=== PATIENT | female | born 1955 | race Caucasian/White ===

== ENCOUNTER → 2017-02-22 | Outpatient (CLI) | payer BC | LOC: FIMAGING 11:35 | PROVIDERS: ATTEND Internal Medicine | DX: Z03.89 Encounter for observation for other suspected diseases and conditions ruled out (principal) | CPT/HCPCS: G0206 ==

== ENCOUNTER 2017-06-14 09:56 | Emergency (ER) | payer BC ==
[2017-06-14 10:07] VITALS: RESP 18
[2017-06-14] MEDS ORDERED: LORazepam 2 MG/ML INJ ONE (10:31)
--- NOTE | 2017-06-14 10:32 | CPEKG ---
Heart Rate: 75 RR Interval: 800 P-R Interval: 164 QRSD Interval: 94 QT Interval: 416 QTC Interval: 465 P [place]: 27 QRS [place]: -27 T Wave [place]: 13 EKG Severity - OTHERWISE NORMAL ECG - EKG Impression: SINUS RHYTHM EKG Impression: BORDERLINE LEFT AXIS DEVIATION Electronically Signed By: Nedra Ogden 14-Jun-2017 14:57:14
[2017-06-14] MEDS ORDERED: LORazepam 2 MG/ML INJ IVP ONE (10:33)
[2017-06-14 10:38] VITALS: O2SAT 95
--- NOTE | 2017-06-14 11:19 | EDPHY ---
H & P Time Seen by Provider: 06/14/17 10:44 HPI/ROS: CHIEF COMPLAINT: Elevated blood pressure HISTORY OF PRESENT ILLNESS: 61-year-old female with a history of hypertension presents with elevated blood pressure. This morning she went to her exercise class and did not feel quite well. She had slight nausea. She went to the grocery store and bought a blood pressure monitor. When she arrived home, she checked her blood pressure and her systolic blood pressure was over 200. She then took her usual blood pressure medication at 9:00 a.m., which is lisinopril/ hydrochlorothiazide. She takes her BP medication at various times during the day, not always at the same time, and she sometimes she misses a dose. She has been quite anxious lately because a good friend was diagnosed with metastatic lymphoma. No headache or chest pain. REVIEW OF SYSTEMS: Constitutional: No fever, no chills Eyes: No visual changes ENT: No sore throat Respiratory: No cough, no shortness of breath Cardiac: No chest pain Gastrointestinal: no vomiting, no abdominal pain Genitourinary: No hematuria, no dysuria Musculoskeletal: No leg pain or swelling Skin: No rash Neurological: No headache, no numbness, no weakness Psychiatric: Situational depression Past Medical/Surgical History: Hypertension Anxiety Social History: PCP: Dr. Franklin Smoking Status: Never smoked Physical Exam: General Appearance: Alert, pleasant Eyes: Pupils equal and round, no conjunctival pallor or injection ENT, Mouth: Mucous membranes moist Neck: Normal inspection Respiratory: Lungs are clear to auscultation Cardiovascular: Regular rate and rhythm Gastrointestinal: Abdomen is soft and nontender Neurological: A&O, nonfocal, normal gait Skin: Warm and dry, no rash Extremities: Nontender, no pedal edema Psychiatric: Mood and affect normal Constitutional: Initial Vital Signs Temperature (C) 36.5 C 06/14/17 10:04 Heart Rate 88 06/14/17 10:04 Respiratory Rate 18 06/14/17 10:04 Blood Pressure 180/112 H 06/14/17 10:04 O2 Sat (%) 98 06/14/17 10:04 O2 Delivery Mode Room Air Allergies/Adverse Reactions: No Known Allergies Allergy (Verified 06/14/17 10:02) Home Medications: Medication Instructions Recorded CALCITRIOL PO DAILY 11/10/09 Lisinopril/Hctz 20/12.5MG 20 mg PO DAILY 11/10/09 Tums PO QID 11/10/09 ALPRAZolam 06/14/17 LISINOPRIL/HYDROCHLOROTHIAZIDE 1 each PO DAILY #10 tablet 06/14/17 [PRINZIDE 20-25 MG TABLET] Levothyroxine 06/14/17 Medical Decision Making - Diagnostics EKG Interpretation: EKG interpreted by me reveals normal sinus rhythm, rate 75, no ST or T segment changes. ED Course/Re-evaluation: This patient presents with elevated blood pressure, and associated anxiety. Ativan 0.5 mg IV given. Blood pressure while I am in the room is 174/86. She took her blood pressure medication 2 hours ago, so I suspect that her blood pressure will gradually decline. We will observe this patient and decide whether not to give additional blood pressure medication. There is no evidence of hypertensive emergency. 11:50am 165/105. I will increase her lisinopril/hydrochlorothiazide to 20mg/ 25mg daily. Hydrochlorothiazide 25 mg orally given in the emergency department. Blood pressure 163/98 on discharge. Differential Diagnosis: Differential diagnosis includes does not limited to hypertensive emergency, intracranial hemorrhage, acute coronary syndrome, acute renal insufficiency. - Data Points Laboratory Results: Laboratory Results 06/14/17 10:40 06/14/17 10:40 06/14/17 06/14/17 10:40 10:40 WBC 5.72 10^3/uL 10^3/uL (3.80-9.50) RBC 4.50 10^6/uL 10^6/uL (4.18-5.33) Hgb 15.4 g/dL g/dL (12.6-16.3) Hct 42.3 % % (38.0-47.0) MCV 94.0 fL fL (81.5-99.8) MCH 34.2 pg H pg (27.9-34.1) MCHC 36.4 g/dL g/dL (32.4-36.7) RDW 11.7 % % (11.5-15.2) Plt Count 234 10^3/uL 10^3/uL (150-400) MPV 8.5 fL L fL (8.7-11.7) Neut % (Auto) 47.7 % % (39.3-74.2) Lymph % (Auto) 40.0 % % (15.0-45.0) Mathews % (Auto) 9.3 % % (4.5-13.0) Eos % (Auto) 1.4 % % (0.6-7.6) Baso % (Auto) 0.9 % % (0.3-1.7) Nucleat RBC Rel Count 0.0 % % (0.0-0.2) Absolute Neuts (auto) 2.73 10^3/uL 10^3/uL (1.70-6.50) Absolute Lymphs (auto) 2.29 10^3/uL 10^3/uL (1.00-3.00) Absolute Monos (auto) 0.53 10^3/uL 10^3/uL (0.30-0.80) Absolute Eos (auto) 0.08 10^3/uL 10^3/uL (0.03-0.40) Absolute Basos (auto) 0.05 10^3/uL 10^3/uL (0.02-0.10) Absolute Nucleated RBC 0.00 10^3/uL 10^3/uL (0-0.01) Immature Gran % 0.7 % % (0.0-1.1) Immature Gran # 0.04 10^3/uL 10^3/uL (0.00-0.10) Sodium 135 mEq/L mEq/L (134-144) Potassium 3.6 mEq/L mEq/L (3.5-5.2) Chloride 99 mEq/L mEq/L (97-110) Carbon Dioxide 25 mEq/l mEq/l (22-31) Anion Gap 11 mEq/L mEq/L (8-16) BUN 23 mg/dL mg/dL (7-23) Creatinine 0.8 mg/dL mg/dL (0.6-1.0) Estimated GFR > 60 Glucose 102 mg/dL H mg/dL (70-100) Calcium 9.3 mg/dL mg/dL (8.5-10.4) Medications Given: Discontinued Medications Hydrochlorothiazide (Hydrochlorothiazide) 25 mg PO EDNOW ONE Stop: 06/14/17 12:37 Last Admin: 06/14/17 12:43 Dose: 25 mg Lorazepam (Ativan Injection) 0.5 mg IVP EDNOW ONE Stop: 06/14/17 10:34 Last Admin: 06/14/17 10:34 Dose: 0.5 mg Departure - Departure Disposition: Home, Routine, Self-Care Clinical Impression: Hypertension Qualifiers: Hypertension type: essential hypertension Qualified Code(s): I10 - Essential ( primary) hypertension Condition: Good Instructions: Hypertension (ED) Additional Instructions: Take your blood pressure medication at the same time every day. Take and record your blood pressure 3 times daily. Follow up with Dr. Franklin in the office this week. Referrals: Araseli Franklin MD [Primary Care Provider] - As per Instructions Prescriptions: LISINOPRIL/HYDROCHLOROTHIAZIDE [PRINZIDE 20-25 MG TABLET] 1 each PO DAILY #10 tablet
[2017-06-14 12:01] LABS: PLATELET COUNT 234 10^3/uL (150-400)
[2017-06-14 12:24] VITALS: BP 163/98; PULSE 68
[2017-06-14] MEDS ORDERED: HYDROCHLOROTHIAZIDE 25 MG TAB PO ONE (12:36)
[2017-06-14 12:44] VITALS: TEMP 98.4
== END 2017-06-14 12:44 | disposition home or self-care (01) ==
DX: I10 Essential (primary) hypertension (principal)
CPT/HCPCS: 96374; J2060

== ENCOUNTER → 2017-07-28 | Outpatient (CLI) | payer BC | LOC: FIMAGING 10:36 | PROVIDERS: ATTEND Internal Medicine | DX: Z12.31 Encounter for screening mammogram for malignant neoplasm of breast (principal) | CPT/HCPCS: G0202 ==

== ENCOUNTER → 2018-07-29 | Outpatient (CLI) | payer BC | LOC: FIMAGING 09:56 | PROVIDERS: ATTEND Internal Medicine | DX: Z12.31 Encounter for screening mammogram for malignant neoplasm of breast (principal) ==